=== PATIENT | male | born 1950 | race Caucasian/White ===

== ENCOUNTER 2017-09-25 05:11 | Emergency (ER) | payer OTHER ==
[~2017-09-25] VITALS: Ht 167.6 cm; Wt 72.7 kg
[~2017-09-25 05:11] MED LIST: ACET-1953 PO; AMIT50TA3 PO; BUPR-93 PO; GABA-531 PO; LEVO112T4 PO; METH5TAB2; NAPR-58 PO; OMEP20 PO; SILD25 PO
[2017-09-25] MEDS ORDERED: TraMADol HCL 50 MG TABLET PO ONE (06:45)
[2017-09-25 07:00] VITALS: BP 132/90
== END 2017-09-25 07:15 | disposition home or self-care (01) ==
LOC: EMS 05:11
DX: M79.604 Pain in right leg (principal); R45.1 Restlessness and agitation; F41.9 Anxiety disorder, unspecified; M19.90 Unspecified osteoarthritis, unspecified site; F32.9 Major depressive disorder, single episode, unspecified; I10 Essential (primary) hypertension
CPT/HCPCS: 99283